=== PATIENT | male | born 1950 | race Caucasian/White ===

== ENCOUNTER 2024-07-06 12:20 | Inpatient (IN) | payer OTHER, SELFPAY ==
[2024-07-05] VITALS (25 sets, daily range): BP systolic 82–134; BP diastolic 41–83; PULSE 65–87; BMI 28.3
--- NOTE | 2024-07-05 05:23 | ED.GENMED ---
History of Present Illness
<John Santos, DO - Last Filed: 07/05/24 05:47>
General
Chief Complaint: Fainting/Passed Out
Source: patient
Exam Limitations: none
Time Seen by Provider: 07/05/24 05:21
Nursing documentation reviewed up to this point in time: agreed with
History of Present Illness
History of Present Illness:
74 yo male presents to the emergency department due to a near syncope episode. He was in the bathroom, felt lightheaded and fell, hitting his head on the bathtub rail. He felt lightheaded and was given IV fluids. He was hypotensive en route. He
also notes hitting his right knee. He is COVID positive, tested 2 days ago.
Past History
<John Santos, DO - Last Filed: 07/05/24 05:47>
Social History
Tobacco: Non-smoker
Alcohol: None
Drug: None
Review of Systems
<John Santos, DO - Last Filed: 07/05/24 05:47>
Review of Systems
Allergies reviewed?: Yes
All Other Systems: Not applicable
Constitutional: Reports no symptoms
EENT: Reports no symptoms
Respiratory: Reports no symptoms
Cardiac: Reports syncope
ABD/GI: Reports no symptoms
: Reports no symptoms
Musculoskeletal: Reports no symptoms
Skin: Reports no symptoms
Neurological: Reports dizzy
Endocrine: Reports no symptoms
Hematologic/Lymphatic: Reports no symptoms
Psychiatric: Reports no symptoms
Phy Exam
<John Santos DO - Last Filed: 07/05/24 05:47>
Physical Exam
Physical Exam:
Physical Exam
General: no apparent distress, not acutely ill
Neck: supple. no meningeal signs. normal posterior pharynx
Heart: s1/s2 regular rate and rhythm, no murmur. equal radial
pulses.
HEENT: Pupils equal round reactive to light, EOMI
Lungs: no acute respiratory distress. clear bilaterally
Abdomen: normal bowel sounds. not tender. no CVAT
Neuro: alert and oriented. no focal neurological deficits cranial nerves II through XII intact
Skin: no rash superficial laceration mid parietal, 1 cm laceration right knee
Psychiatric: well kept. interactive and cooperative
Extremities: no edema. no calf tenderness. negative homans. good distal pulses
Course
<John Santos, DO - Last Filed: 07/05/24 05:47>
Orders/Labs/Results
Orders:
Orders
07/05/24 05:22
Electrocardiogram (*1) Stat
Reason for Study: Syncope
CT Head W/o Iv Contrast Urgent
Comment:
Reason For Exam: fall, hit head
EKG- Treatment ONCE
IV Insert/Care/Rem.- Treatment PRN
07/05/24 05:30
Complete Blood Count/With Diff Urgent
Comprehensive Metabolic Panel Urgent
07/05/24 06:01
Orthostatic VS- Treatment ONCE
07/05/24 06:15
0.9% Sodium Chloride 1000 ml [Nss] 1,000 ml IV BOLUS
07/05/24 06:36
Potassium Chloride [KCl] 40 meq PO NOW STA
07/05/24 08:21
Diphenhydramine [Benadryl] 25 mg .ROUTE .STK-MED ONE
07/05/24 08:22
Diphenhydramine [Benadryl] 25 mg PO NOW STA
07/05/24 09:19
0.9% Sodium Chloride 1000 ml [Nss] 1,000 ml IV BOLUS
07/05/24 11:15
0.9% Sodium Chloride 1000 ml [Nss] 1,000 ml IV 150 mls/hr
Abnormal Lab Results
07/05/24
05:30
WBC 3.0 L 10^3/uL
(4.8-10.8)
MCV 73.2 L fL
(80.0-94.0)
MCH 25.6 L pg
(27.0-31.0)
Plt Count 127 L 10^3/uL
(130-400)
Monocytes % 13.5 H %
(1.7-9.3)
Sodium 134 L mmol/L
(135-145)
Potassium 3.4 L mmol/L
(3.5-5.1)
Chloride 96 L mmol/L
(98-107)
BUN 22 H mg/dl
(9-20)
Glucose 136 H mg/dl
(70-99)
Total Protein 6.0 L g/dl
(6.3-8.2)
07/05/24 05:30
07/05/24 05:30
Vital Signs
Initial and Last Documented VS:
Initial Vital Signs
Temp Pulse Resp BP Pulse Ox
36.9 C 63 20 115/74 99
07/05/24 05:18 07/05/24 05:18 07/05/24 05:18 07/05/24 05:18 07/05/24 05:18
Last Documented Vital Signs
Temp Pulse Resp BP Pulse Ox
36.9 C 70 15 132/83 99
07/05/24 05:18 07/05/24 10:30 07/05/24 10:30 07/05/24 10:00 07/05/24 07:09
<Moisés Richards MD - Last Filed: 07/05/24 11:04>
Orders/Labs/Results
Orders:
Orders
07/05/24 05:22
Electrocardiogram (*1) Stat
Reason for Study: Syncope
CT Head W/o Iv Contrast Urgent
Comment:
Reason For Exam: fall, hit head
EKG- Treatment ONCE
IV Insert/Care/Rem.- Treatment PRN
07/05/24 05:30
Complete Blood Count/With Diff Urgent
Comprehensive Metabolic Panel Urgent
07/05/24 06:01
Orthostatic VS- Treatment ONCE
07/05/24 06:15
0.9% Sodium Chloride 1000 ml [Nss] 1,000 ml IV BOLUS
07/05/24 06:36
Potassium Chloride [KCl] 40 meq PO NOW STA
07/05/24 08:21
Diphenhydramine [Benadryl] 25 mg .ROUTE .STK-MED ONE
07/05/24 08:22
Diphenhydramine [Benadryl] 25 mg PO NOW STA
07/05/24 09:19
0.9% Sodium Chloride 1000 ml [Nss] 1,000 ml IV BOLUS
07/05/24 11:15
0.9% Sodium Chloride 1000 ml [Nss] 1,000 ml IV 150 mls/hr
Abnormal Lab Results
07/05/24
05:30
WBC 3.0 L 10^3/uL
(4.8-10.8)
MCV 73.2 L fL
(80.0-94.0)
MCH 25.6 L pg
(27.0-31.0)
Plt Count 127 L 10^3/uL
(130-400)
Monocytes % 13.5 H %
(1.7-9.3)
Sodium 134 L mmol/L
(135-145)
Potassium 3.4 L mmol/L
(3.5-5.1)
Chloride 96 L mmol/L
(98-107)
BUN 22 H mg/dl
(9-20)
Glucose 136 H mg/dl
(70-99)
Total Protein 6.0 L g/dl
(6.3-8.2)
07/05/24 05:30
07/05/24 05:30
Vital Signs
Initial and Last Documented VS:
Initial Vital Signs
Temp Pulse Resp BP Pulse Ox
36.9 C 63 20 115/74 99
07/05/24 05:18 07/05/24 05:18 07/05/24 05:18 07/05/24 05:18 07/05/24 05:18
Last Documented Vital Signs
Temp Pulse Resp BP Pulse Ox
36.9 C 70 15 132/83 99
07/05/24 05:18 07/05/24 10:30 07/05/24 10:30 07/05/24 10:00 07/05/24 07:09
Procedures
<John Santos, DO - Last Filed: 07/05/24 05:47>
Laceration Closure
Right Lower Leg:
Status of Wound: clean
Size of Wound in cm: 1
Description of Wound Edges: sharp
Preparation: cleaned with saline
Anesthesia: 1% Lidocaine with epi
Revision/Debridement: routine- no revision
Wound exploration: explored to base- no FB
Type of Closure: single layer closure
Skin Closure Material: 4-0 nylon
Number of sutures: 1
<John Santos, DO - Last Filed: 07/05/24 05:47>
MDM/Problems Addressed
Differential Diagnosis Includes:
Dysrhythmia, hypovolemia, electrolyte disturbance, intracranial hemorrhage
MDM/Problems Addressed:
74-year-old male with COVID, near syncope episode, scalp laceration superficial, right lower leg laceration.
<John Santos, DO - Last Filed: 07/05/24 05:47>
*Pulse Oximetry
Patient hypoxic: no
*EKG
Interpreted by ED Provider?: Yes
EKG Intrepretation Date: 07/05/24
EKG Intrepretation Time: 05:28
Interpretation: abnormal
Comparison EKG: no comparison EKG present
Heart Rate: 62
Rate: normal
Rhythm: sinus
Douglas: normal axis
Interval: normal interval
QRS Pattern: other (LAFB)
Ischemia: no ischemia
*[employer] Interpretation
Rate: normal
Interpretation: normal
Heart Rate: 66
Rhythm: sinus
*Critical Care Note
Total Time (30-74mins, 75-104mins- exclusive of procedures): Not Applicable
<Moisés Richards MD - Last Filed: 07/05/24 11:04>
Update Note
Update Note:
UPDATE (Moisés Richards MD)
I have seen and evaluated the patient after signout and reviewed all labs and imaging.
Focused HPI: 74-year-old male COVID-positive since Thursday (primary symptom mild cough, sore throat, runny nose) who presented to the emergency room after syncope/near syncopal event with fall and head trauma. Patient says that he was in the
bathroom last night and when he bent over he felt lightheaded and nearly passed out that she does not believe he lost consciousness. He fell to the ground and hit his head. Sustained abrasion to the crown of the head. He also hit his knee on the
ground and sustained a minor laceration. Tetanus up-to-date. EMS called to bring him to the hospital. Here in the emergency room he says he feels well denies any complaints aside from feeling fatigued and mild sore throat/runny nose which had
been his primary COVID symptoms. He denies any headache, neck pain. Denies any back pain. Denies any chest or abdominal pain. He did not have any palpitations. Denies shortness of breath. Denies any other complaints. Minor laceration noted,
tetanus up-to-date.
Physical exam: Awake alert oriented x 3 with GCS 15. Vital signs noted all within normal limits�apparently had some hypotension for EMS which has since resolved. He has no cardiac rubs gallops or murmurs. Lungs clear to auscultation bilaterally.
Abdomen nontender. Minor abrasion to the crown of the head. Laceration right lower leg status post repair with sutures in place.
Medical Decision Makin-year-old male presents after near syncopal/syncopal event while bending over in the bathroom last night; event occurred in the setting of recent positive COVID test. Had associated fall with minor abrasion to the head as
well as laceration on the lower leg�laceration has been repaired. Tetanus reportedly up-to-date. He had initial lab work sent off including a CBC which showed mild leukopenia and thrombocytopenia likely viral related. CMP showed marginal
hypokalemia which were repleted p.o. Mildly elevated BUN�fluids in progress. He had a CT of the head which appears normal but we are awaiting radiology review. His EKG shows sinus rhythm with no high-grade AV block, Brugada, long QT, delta wave.
He is currently receiving fluids, pending CT head. He says that he feels well. Suspect likely mildly hypovolemic in the setting of viral illness which precipitated dizziness with positional change. Likely discharge pending fluids and CT read if
negative.
CT head report reviewed: No acute pathology noted. Patient remains awake alert with stable vital signs. Fluids finishing up.
Patient still markedly orthostatic (BP drops 50 points) with positional change. Provide additional fluids and reassess.
After 2.5 L of IV fluid patient still markedly orthostatic. Additional fluids ordered will admit for observation and IV fluids. Discussed with hospitalist.
ED Attending Note
<John Santos, DO - Last Filed: 07/05/24 05:47>
-
Portions of this chart may have been created with voice recognition software.� Occasional wrong word or��sound alike� substitutions may have occurred due to the inherent limitations of voice recognition software.
Discharge Plan
Departure
Patient Disposition: Admit
Date of Disposition: 07/05/24
Time of Disposition: 11:03
Admit to doctor: Topher
Presentation/result/management discussed w/ accepting MD/DO: Hospitalist
Patient with high blood pressure during this ER visit?: Yes
Condition: Good
Covid-19: Confirmed COVID-19
Discharge Problem:
Syncope, Laceration of scalp, Laceration of right lower leg, Orthostatic hypotension
Activity Restrictions/Additional Instructions:
Return for any concerns. Suture removal in 7-10 days by primary care.
Interventions
Interventions:
*Risk Screen - Suicide Last Done: 07/05/24 05:18
*General Assessment Last Done: 07/05/24 05:18
*Neglect/Abuse Screening Last Done: 07/05/24 05:18
ED- Fall Risk Assessment Last Done: 07/05/24 05:39
*ED COVID-19 Vaccine History Last Done: 07/05/24 05:32
ED- Cardiac Assessment Last Done: 07/05/24 05:39
ED- Neurological Assessment Last Done: 07/05/24 05:39
Discharge Date and Time
Print Language: MALIAN
[2024-07-05 05:50] LABS: % Basophils 0.7 % (0-2); % Eosinophils 0.7 % (0-6); % Immature Granulocytes 0.3 % (0-0.5); % Lymphocytes 39.2 % (20.5-51.1); % Monocytes 13.5 % (1.7-9.3); % Neutrophils 45.6 % (42.2-75.2); Absolute Lymphocytes 1.2 10^3/uL (1.2-3.4); Absolute Monocytes 0.4 10^3/uL (0.1-0.6); Absolute Neutrophils 1.4 10^3/uL (1.4-6.5); Hematocrit 42.8 % (39.0-52.0); Mean Corpuscular Hgb 25.6 pg (27.0-31.0); Mean Corpuscular Volume 73.2 fL (80.0-94.0); Mean Platelet Volume 9.8 fL (7.4-10.4); Nucleated Red Blood Cells % 0 % (-); Platelet Count 127 10^3/uL (130-400); Red Blood Cell Count 5.85 10^6/uL (4.70-6.10); Red Cell Dist. Width 14.4 % (11.5-14.5)
[2024-07-05 06:12] LABS: ALT (SGPT) 20 U/L (0-50); AST (SGOT) 30 U/L (17-59); Albumin 3.5 g/dl (3.5-5.0); Alkaline Phosphatase 85 U/L (38-126); Blood Urea Nitrogen 22 mg/dl (9-20); Calcium 8.5 mg/dl (8.4-10.2); Carbon Dioxide 25 mmol/L (22-30); Chloride 96 mmol/L (98-107); Estimated Creatinine Clearance 68 ml/min; Glucose 136 mg/dl (70-99); Potassium 3.4 mmol/L (3.5-5.1); Sodium 134 mmol/L (135-145); Total Bilirubin 1.1 mg/dl (0.2-1.3); eGFR > 60.00
[2024-07-05] MEDS: NSS 1000 IV ×4 (06:16→17:31)
[2024-07-05] MEDS: KCL 40 MEQ PO (06:41)
[2024-07-05] MEDS: BENADRYL 25 MG PO (08:22)
--- NOTE | 2024-07-05 11:55 | HPS.HSE ---
Family Physician
-
Family Physician: Fabian Wood
Chief Complaint
-
weak and generalized malaise
History of Present Illness
Patient 74 years old male with history of hypertension, hyperlipidemia, glaucoma, presented to the hospital with generalized malaise and near syncope event. Patient has been sick since Thursday with generalized malaise, cough, myalgias and he
tested COVID-19 negative on Thursday but then he also started having some fevers and continues to get worse and he tested positive for COVID-19 at home on Thursday. Patient has been very weak and when he was walking to the bathroom he felt
lightheaded and he fell and hit his head on the bathtub rail. Patient had discussed with provider via telemedicine that he was going to be started on Paxlovid and he was in the process of thinking about it. Today he was noted to be hypotensive en
route. He was given IV fluids in the ED. He had a CT scan of the head unremarkable. His BUN noticed to be elevated as well as hypokalemia and hyponatremia and he was referred to hospitalist for further evaluation.
Medical History
Past Medical History
Past Medical History: Reports Other (Hypertension, hyperlipidemia, GERD, glaucoma.)
Past Surgical History: Reports None
Social History
Tobacco: Non-smoker
Alcohol: None
Drug: None
Family History
Family History: Not pertinent
Allergies / Home Medications
Allergies reflects when Allergies were last updated in [facility].
Home Medications with original date entered in [facility]
Allergy/Medication List:
Allergies
Allergy/AdvReac Type Severity Reaction Status Date / Time
gluten Allergy Mild Rash Verified 07/05/24 05:28
Home Medications
cholecalciferol (vitamin D3) 25 mcg (1,000 unit) tablet 25 mcg PO QPM Supplement 07/05/24
famotidine 20 mg tablet 20 mg PO BID Gastrointestinal Issue 07/05/24
latanoprost 0.005 % eye drops 1 drp BOTH EYES HS Eye Condition 07/05/24
omega 6-rgf-[id number]-fish oil 1,200 mg (144 mg-216 mg) capsule (Fish Oil) 3 cap PO DAILY Supplement 07/05/24
simvastatin 20 mg tablet 20 mg PO QPM High Cholesterol 07/05/24
therapeutic multivitamin 1 tab PO DAILY Supplement 07/05/24
triamterene 37.5 mg-hydrochlorothiazide 25 mg tablet 1 tab PO DAILY Blood Pressure 07/05/24
Review of Systems
-
A 12 point ROS was completed and negative except as noted: Yes
Physical Exam
Vital Signs
Vital Signs
Temp Pulse Resp BP Pulse Ox
98.5 F 70 15 132/83 99
07/05/24 05:18 07/05/24 10:30 07/05/24 10:30 07/05/24 10:00 07/05/24 07:09
Physical exam:
General: Acutely ill
HEENT: Normocephalic, Atraumatic and Dry Mucous Membranes
Respiratory: Clear to Auscultation; Negative Wheezes, Rales or Rhonchi
Cardiac: Regular Rhythm and S1/S2
GI: Soft, Nontender and Nondistended
Musculoskeletal: No Clubbing, No Cyanosis and No Edema
Neuro: Awake, Alert and Oriented
Psych: Calm
Physical Exam
General: Other
Laboratory Results
-
07/05/24 05:30
07/05/24 05:30
Laboratory Results
Total Bilirubin 1.1 mg/dl (0.2-1.3) 07/05/24 05:30
AST 30 U/L (17-59) 07/05/24 05:30
ALT 20 U/L (0-50) 07/05/24 05:30
Alkaline Phosphatase 85 U/L (38-126) 07/05/24 05:30
Data Reviewed
-
CT Scan: Image Personally Visualized and interpreted
Lab Data: Labs Reviewed by me
Impression/Plan
-
IMPRESSION:
Patient is 74 years old male with history hypertension, hyperlipidemia presented to the hospital with fall, generalized weakness, cough, generalized malaise in the setting of acute COVID-19.
Impression:
COVID-19 acute infection
Fall with near syncope event likely hypotension/orthostatic
Hyponatremia
Hypokalemia
Leukopenia
Conditions prior to presentation:
Hypertension
Hyperlipidemia
GERD
Glaucoma
PLAN:
Continue aggressive IV fluid
Continue checking orthostatic
Cardiac monitoring
Discussed with patient in regards to start Paxlovid and went over the risk and benefits and interaction with medications and patient agreeable to start. Retest in-house.
Will start Paxlovid today.
Hold antihypertensives and statins for 5 days.
Monitor blood pressure and at the moment he does not need antihypertensives.
Lovenox for DVT prophylaxis
CODE STATUS full code
Time spent 75 minutes
[2024-07-05 13:53] LABS: COVID-19 Antigen Positive (Negative)
--- NOTE | 2024-07-05 15:45 | PTCARENOTE ---
pt arrived to unit at [id number] stretcher from ED, at the bedside. pt ambulated from hallway to bed with standby assist. pt connected to tele #[id number] running NSR. VSS. assessment completed by this nurse.
[2024-07-05] MEDS: VITAMIN D3 (cholecalciferol) 25 MCG PO (17:30)
[2024-07-05] MEDS: LOVENOX 40 MG SC (17:30)
[2024-07-05] MEDS: PAXLOVID 2X150 MG-100 MG DOSE PACK 1 DOSE PO (19:30)
[2024-07-05] MEDS: PEPCID 20 MG PO (19:31)
[2024-07-05] MEDS: XALATAN OPHTHALMIC SOLUTION 1 DROP BOTH EYES (21:47)
[2024-07-06] VITALS (7 sets, daily range): BP systolic 123–156; BP diastolic 59–94; PULSE 67–74
[2024-07-06] MEDS: NSS 1000 IV ×2 (04:54→12:43)
[2024-07-06 05:47] LABS: Hematocrit 36.7 % (39.0-52.0); Hemoglobin 13.1 g/dL (13.0-18.0); Mean Corp Hgb Conc. 35.7 g/dL (33.0-37.0); Mean Corpuscular Volume 72.8 fL (80.0-94.0); Red Blood Cell Count 5.04 10^6/uL (4.70-6.10); Red Cell Dist. Width 14.4 % (11.5-14.5)
[2024-07-06 05:56] LABS: Mean Platelet Volume 9.7 fL (7.4-10.4); Platelet Count 93 10^3/uL (130-400)
[2024-07-06 06:30] LABS: Blood Urea Nitrogen 13 mg/dl (9-20); Carbon Dioxide 25 mmol/L (22-30); Chloride 102 mmol/L (98-107); Estimated Creatinine Clearance 75 ml/min; Glucose 97 mg/dl (70-99); Magnesium 1.9 mg/dl (1.6-2.3); Potassium 3.8 mmol/L (3.5-5.1); Sodium 134 mmol/L (135-145); eGFR > 60.00
--- NOTE | 2024-07-06 08:56 | W.PN.HOSP.TC ---
Today's Communication/Plan
-
IV fluids. Paxlovid. Hematology consult.
Assessment / Plan
Assessment / Plan
Physical exam:
General: Acutely ill
HEENT: Normocephalic, Atraumatic and Dry Mucous Membranes
Respiratory: Clear to Auscultation; Negative Wheezes, Rales or Rhonchi
Cardiac: Regular Rhythm and S1/S2
GI: Soft, Nontender and Nondistended
Musculoskeletal: No Clubbing, No Cyanosis and No Edema
Neuro: Awake, Alert and Oriented
Psych: Calm
A/P:
COVID-19 acute infection:
Continue Paxlovid-this is day 2 out of 5.
Continue isolation precautions
Discussed with at bedside
Fall with near syncope event likely hypotension/orthostatic:
Continue IV fluids
Orthostatic improving
Thrombocytopenia:
Hold Lovenox
Monitor trend
Hematology consult-discussed with hematology via [place] text
Unclear if related to virus which is most likely or related to medications or other
Leukopenia:
As above
Hyponatremia:
Continue to monitor
Hypokalemia:
Improved
Hypertension:
Monitor off antihypertensives
Plan to hold medications for 5 days-this is day 2 out of 5.
Hyperlipidemia:
Monitor off statins
Plan to hold medications for 5 days-this is day 2 out of 5.
GERD:
Continue H2 addy
Glaucoma:
Continue eyedrops
DVT prophylaxis:
Hold Lovenox due to thrombocytopenia
SCDs for DVT prophylaxis
CODE STATUS:
Full code
Anticipated Discharge: 24 - 48 hours
Subjective/Interval History
-
Date of Service: July 06, 2024
Patient feels better overall. No epistaxis, bright blood per rectum, or melena.
Objective Data
-
Labs:
Laboratory Results
07/06/24
05:22
WBC 2.0 L*
Hgb 13.1
Hct 36.7 L
Plt Count 93 L D
Sodium 134 L
Potassium 3.8
Chloride 102
Carbon Dioxide 25
BUN 13
Creatinine 0.9
Glucose 97
Calcium 8.0 L
Vital Signs:
Vital Signs
Temp Pulse Resp BP Pulse Ox
98.1 F 69 16 138/94 98
07/06/24 07:00 07/06/24 07:00 07/06/24 07:00 07/06/24 07:00 07/06/24 07:00
I&O
07/05/24 07/06/24 07/07/24
06:59 06:59 06:59
Intake Total 960 / 960
Output Total 1600 / 1600
Balance -640 / -640
[2024-07-06] MEDS: PAXLOVID 2X150 MG-100 MG DOSE PACK 1 DOSE PO ×2 (09:10→21:08)
[2024-07-06] MEDS: PEPCID 20 MG PO ×2 (09:10→21:08)
--- NOTE | 2024-07-06 16:08 | CM ---
Patient positive for Covid-19
Initial Assessment completed via phone with who was at patient's bedside
Pharmacy verified: [facility] @ [address] [place] [address]
Family Physician verified: Keith Rosario MD; [address] [place] [address] [id number], [place], [phone];
reported that she and her live in 3 story home including basement; 3 steps to enter; 13 steps between floors; inside railings present; powder room on 1st floor; 2nd floor master bath has tub w/shower and grab bars
Per , her has Glaucoma and Celiac Disease
PLOF: reported is independent with ambulation, stairs and ADLs; Retired; Drives
DME: none
No SNF or Home Health utilization history
Family will transport home
Plan: Discharge to home when medically stable; CM will monitor for discharge needs
[2024-07-06] MEDS: VITAMIN D3 (cholecalciferol) 25 MCG PO (17:23)
[2024-07-06] MEDS: XALATAN OPHTHALMIC SOLUTION 1 DROP BOTH EYES (21:11)
[2024-07-07] MEDS: NSS 1000 IV (02:51)
[2024-07-07 06:29] LABS: Hematocrit 35.9 % (39.0-52.0); Hemoglobin 12.7 g/dL (13.0-18.0); Mean Corp Hgb Conc. 35.4 g/dL (33.0-37.0); Mean Corpuscular Hgb 26.7 pg (27.0-31.0); Mean Corpuscular Volume 75.6 fL (80.0-94.0); Mean Platelet Volume 9.9 fL (7.4-10.4); Platelet Count 97 10^3/uL (130-400); Red Blood Cell Count 4.75 10^6/uL (4.70-6.10); Red Cell Dist. Width 14.2 % (11.5-14.5); White Blood Cell Count 2.3 10^3/uL (4.8-10.8)
[2024-07-07 06:39] VITALS: BMI 29.4
[2024-07-07 06:44] LABS: Band Neutrophils 0 % (0-3); Eosinophils 5 % (0-6); Lymphocytes 38 % (20-51); Monocytes 14 % (2-9); Normal RBC Morphology Yes; Platelets Checked Yes; Segmented Neutrophils 42 % (42-75); Total Cells Counted 100
[2024-07-07 06:45] LABS: Absolute Neutrophils -Man Diff 0.9 10^3/uL (1.4-6.5); Blood Urea Nitrogen 14 mg/dl (9-20); Calcium 8.8 mg/dl (8.4-10.2); Carbon Dioxide 29 mmol/L (22-30); Chloride 102 mmol/L (98-107); Estimated Creatinine Clearance 85 ml/min; Glucose 92 mg/dl (70-99); Potassium 4.3 mmol/L (3.5-5.1); Sodium 137 mmol/L (135-145); eGFR > 60.00
[2024-07-07 07:00] VITALS: BP 144/81
[2024-07-07] MEDS: PAXLOVID 2X150 MG-100 MG DOSE PACK 1 DOSE PO (09:37)
[2024-07-07] MEDS: PEPCID 20 MG PO (09:37)
--- NOTE | 2024-07-07 09:37 | W.PN.HOSP.TC ---
Today's Communication/Plan
-
Discharge planning in progress.
Assessment / Plan
Assessment / Plan
Physical exam:
General: No acute distress.
HEENT: Normocephalic, Atraumatic and Dry Mucous Membranes
Respiratory: Clear to Auscultation; Negative Wheezes, Rales or Rhonchi
Cardiac: Regular Rhythm and S1/S2
GI: Soft, Nontender and Nondistended
Musculoskeletal: No Clubbing, No Cyanosis and No Edema
Neuro: Awake, Alert and Oriented
Psych: Calm
A/P:
COVID-19 acute infection:
Continue Paxlovid-this is day 2 out of 5-last pill on Thursday.
Continue isolation precautions
Discussed with at bedside
From my standpoint medically stable for discharge today but if he does feel symptomatic or does not feel comfortable going home then could monitor for one more night.
Fall with near syncope event likely hypotension/orthostatic:
Stop IV fluids
Orthostatic improving
Family request PT to reeval.
Thrombocytopenia:
Hold Lovenox
Monitor trend
Hematology consult appreciated-discussed with hematology today and recommended to monitor CBC as outpatient and they are okay with discharge planning today.
Likely related to viral infection
Leukopenia:
As above
Hyponatremia:
Continue to monitor
Hypokalemia:
Improved
Hypertension:
Monitor off antihypertensives
Plan to hold medications for 5 days-this is day 2 out of 5.
Hyperlipidemia:
Monitor off statins
Plan to hold medications for 5 days-this is day 2 out of 5.
GERD:
Continue H2 addy
Glaucoma:
Continue eyedrops
DVT prophylaxis:
Hold Lovenox due to thrombocytopenia
SCDs for DVT prophylaxis
CODE STATUS:
Full code
Anticipated Discharge: Today
Subjective/Interval History
-
Date of Service: July 07, 2024
Patient feels some shortness of breath. He does not feel dizzy. Denies chest pain. Afebrile.
Objective Data
-
Labs:
Laboratory Results
07/07/24
05:48
WBC 2.3 L*
Hgb 12.7 L
Hct 35.9 L
Plt Count 97 L
Sodium 137
Potassium 4.3
Chloride 102
Carbon Dioxide 29
BUN 14
Creatinine 0.8
Glucose 92
Calcium 8.8
Vital Signs:
Vital Signs
Temp Pulse Resp BP Pulse Ox
98.2 F 69 16 144/81 97
07/07/24 07:00 07/07/24 07:00 07/07/24 07:00 07/07/24 07:00 07/07/24 07:00
I&O
07/06/24 07/07/24 07/08/24
06:59 06:59 06:59
Intake Total 960 / 960 1560 / 1560
Output Total 1600 / 1600 2550 / 2550
Balance -640 / -640 -990 / -990
[2024-07-07 13:20] LABS: Iron 30 ug/dl (49-181)
[2024-07-07 14:00] VITALS: BP 137/74
[2024-07-07 14:05] VITALS: BP 152/78; BP 153/81; BP 159/83; PULSE 62; PULSE 63; PULSE 64
--- NOTE | 2024-07-07 14:13 | CM ---
PT re-evaluated orthostatics and cleared for discharge to Home
Plan: Discharge to Home today; no needs; will transport
[2024-07-07 16:22] LABS: Ferritin 41.2 ng/ml (17.9-464.0)
[2024-07-07 16:53] LABS: Folate 15.3 ng/ml (2.76-20); Vitamin B12 298 pg/ml (239-931)
[2024-07-07 20:37] LABS: Hepatitis C Antibody Negative (Negative)
== END 2024-07-07 16:09 | disposition home or self-care (01) | DRG 178 ==
LOC: 3 WEST ACU 12:20
PROVIDERS: Internal Medicine Hematology & Oncology; ADMITTING PHYSICIAN Hospitalist; EMERGENCY PHYSICIAN Emergency Medicine; FAMILY PHYSICIAN Student in an Organized Health Care Education/Training Program
DX: U07.1 COVID-19 (principal); E87.1 Hypo-osmolality and hyponatremia; I95.1 Orthostatic hypotension; D69.6 Thrombocytopenia, unspecified; D72.819 Decreased white blood cell count, unspecified; E87.6 Hypokalemia; I10 Essential (primary) hypertension; E78.5 Hyperlipidemia, unspecified; K21.9 Gastro-esophageal reflux disease without esophagitis; H40.9 Unspecified glaucoma
CPT/HCPCS: 70450; 80048; 80053; 82607; 82728; 82746; 83540; 83735; 85025; 85027; 86803; 87811; 93005; 96360; 96361; 97112; 97162; 97530; 99285

== ENCOUNTER 2025-06-28 11:22 | Inpatient (IN) | payer OTHER, SELFPAY ==
[2025-06-28] VITALS (13 sets, daily range): BP systolic 106–152; BP diastolic 55–94; BMI 28.6
[2025-06-28 09:54] LABS: Hematocrit 43.1 % (39.0-52.0); Hemoglobin 15.2 g/dL (13.0-18.0); Mean Corp Hgb Conc. 35.3 g/dL (33.0-37.0); Mean Corpuscular Volume 81.5 fL (80.0-94.0); Nucleated Red Blood Cells % 0 % (-); Platelet Count 184 10^3/uL (130-400); Red Cell Dist. Width 12.5 % (11.5-14.5)
--- NOTE | 2025-06-28 09:54 | ED.GENMED ---
History of Present Illness
General
Chief Complaint: Chest Pain
Source: patient and ambulance crew
Time Seen by Provider: 06/28/25 09:53
History of Present Illness
History of Present Illness:
75-year-old male presents to the emergency room complaining of chest pain. Patient brought to the emergency by ambulance. He noted some mild discomfort in his anterior chest that started while he was exercising with his household personal assistant. The
discomfort persisted even after he stopped exercising and was resting. He had significant sweating which is not typical for him. Mild shortness of breath. He had an episode of nausea while paramedics were putting him in the ambulance. The chest
discomfort is about the same now as it was earlier which is mild maybe a 2 out of 10 but definitely something is not had before and he feels generally unwell like something is wrong. Medics noted the patient had some bradycardia and route.
Prehospital EKG suggestive of an inferior wall NV and prehospital STEMI alert called.
Past History
Social History
Tobacco: Non-smoker
Alcohol: None
Drug: None
Phy Exam
Physical Exam
Physical Exam:
General: Awake, Alert, Oriented X3. No acute distress.
Vitals: unremarkable
Head: Atraumatic
Eyes: Pupils equal, EOMI
Neck: Trachea midline
Lungs: Clear and equal b/l
Heart: Regular rate, no murmurs
Neuro: Nonfocal
Skin: Warm, dry, no rash
Extremities: pulses equal b/l, no edema
Scores
Heart Score for Chest Pain Patients
STEMI patient?: Yes
Course
Orders/Labs/Results
Orders:
Orders
06/28/25 09:43
Electrocardiogram (*1) Urgent
Reason for Study: Chest Pain
Cardiac Monitoring- Treatment ONCE
EKG- Treatment ONCE
IV Insert/Care/Rem.- Treatment PRN
O2 Therapy [RESP] Urgent
Titrate/Wean O2 to maintain O2 sat greater than (%): 90
Special Instructions: Maintain sats >/=90%
Pulse Ox/spot Check [RESP] Urgent
Quantity: 1
Special Instructions: ON ROOM AIR
06/28/25 09:48
Complete Blood Count/With Diff Urgent
Comprehensive Metabolic Panel Urgent
Prothrombin Time Urgent
Troponin I Urgent
06/28/25 09:55
Heparin 5,000 units .ROUTE .STK-MED ONE
06/28/25 09:57
Fentanyl Citrate/Pf [Sublimaze] 100 mcg .ROUTE .STK-MED ONE
Heparin 10,000 units .ROUTE .STK-MED ONE
Heparin 1000 Units/500 ml [Heparin] 1,000 units in 500 ml .ROUTE .STK-MED
Heparin Sodium,Porcine/Ns/Pf [Heparin 2000 Units/1000 ml] 2,000 unit in 1,000 ml .ROUTE .STK-MED
Lidocaine HCl/Pf [Xylocaine-Mpf 1% Vial] 100 mg .ROUTE .STK-MED ONE
Midazolam HCl [Versed] 2 mg .ROUTE .STK-MED ONE
Verapamil Injectable [Isoptin/Verapamil Injection] 5 mg .ROUTE .STK-MED ONE
06/28/25 09:58
Nitroglycerin [Tridil] 1,500 mcg .ROUTE .STK-MED ONE
06/28/25 Lunch
Cholesterol Lowering
At Your Request: Full Participation
Does patient need a safe tray?: No
Cholesterol Lowering: Sodium, 2 Gram
Gluten Free
06/28/25 10:18
Ticagrelor [Brilinta] 180 mg .ROUTE .STK-MED ONE
06/28/25 10:29
Adenosine [Adenocard] 6 mg .ROUTE .STK-MED ONE
06/28/25 10:31
EPTIFIBATIDE 75 mg/100 mL [Integrilin] 75,000 mcg in 100 ml .ROUTE .STK-MED
Eptifibatide [Integrilin] 20 ml .ROUTE .STK-MED
06/28/25 10:33
Admit Patient As Directed
Co-Sign Provider:
Level of Care: Inpatient admission
Assign to:: IVU
Physician / Group: genevieve stevenson
Diagnosis: STEMI
Reason for Hospitalization: Inferior STEMI
Expected length of stay greater than two midnights?: Yes
ELOS- Estimated Length of Stay in days: 3
I certify the patient meets the requirements for IP care: Yes
Electrocardiogram (*1) Urgent
Reason for Study: Other
Other Reason for Exam: s/p intervention
Comment: cbc
CARDIAC REHAB CONSULT Routine
Co-Sign Provider:
Cardiac Rehab & Exercise Evaluation Referral
Type of Cardiac Rehab Referral: Outpatient
Diagnosis: STEMI
Date of Diagnosis/Surgery: 06/28/25
Referring Provider: Jon Cardoso
[facility] Intensive Cardiac Rehab Exercise Prescription
The above named person is capable of participating in an intensive cardiac rehab exercise therapy program
under the guidance of the [facility] cardiac rehab staff, outpatient registered dieticians and
supervision of a physician.
ICR Program Objectives:
Provide supervised exercise, cooking classes, nutritional counseling and healthy mind-set education to
improve the function/symptom free work capacity to an optimal level as well as control risk factors to
prevent the progression of heart disease. During the supervised exercise therapy session some or all of
the following may be included in the cardiac rehab session: ECG telemetry, BP, heart rate, rate of
perceived exertion, symptoms/tolerance, cholesterol testing and education. Exercise modalities may
include: treadmill, upright or recumbent bike, spin bike, rowing machine, elliptical, recumbent
elliptical, arm-bike machine, recumbent stepper and free weights.
Intensity:
All CR staff will use ACSM guidelines: Most patients will exercise in the following range: Heart Rate
[place] range of 40% to 80% & Oxygen Uptake reserve range 40-80% (VO2R). Peak heart rate and VO2 are
derived from the cardiac rehab submaximal graded exercise test at RPE of 13/14 out of 20. Initial
intensity range: RPE 11 to 14/20 and may expand to 11 to 16/20.
Duration & Frequency:
If appropriate the patient will be progressed up to 40 minutes of exercise therapy. Patients will be
instructed to come three times a week in cardiac rehab and at a home/other gym to achieve optimal
physical activity/exercies i.e. 4000-10,000 steps per day.
Education:
The patient will receive one-on-one education during their orientation, initial exercise evaluation, ITP
reassessments and discharge session. Each exercise session will also include an education class (30-40
minutes).
Acetaminophen [Tylenol] 650 mg PO Q4HPRN PRN
Ondansetron Injectable [Zofran] 4 mg .ROUTE .STK-MED ONE
Activity As Directed
Activity Level: Out of Bed- Chair
Comment: bed/chair rest for 2 hours then out of bed ad corwin
Learning And Development Manager Procedure As Directed
Cardiac Cath Procedure: percutaneous coronary intervention
Intake/ Output As Directed
Frequency: Per unit guidelines
Notify MD As Directed
Notify physician if: immediately for chest pain or bleeding from access site(s)
Radial Artery Hemostasis Method As Directed
Instructions:: 3 mL out at 2 hour posts placement of band
3 mL out at 2 1/2 hours post placement of band
3 mL out at 3 hours post placement of band
Off at 3 1/2 hours post placement of band
If any oozing or hemotoma occurs:: re-inflate band and call provider
Site Checks As Directed
Check access site for bleeding/hematoma: Yes
Comment: on arrival, Q15min x4, Q30min x2, Q1 hr x2, Q2 hr x2, Q4 hr or per
protocol
Vascular Checks As Directed
Location: distal to access site - pulse check
Frequency: Other
Comment: on arrival, Q15min x4, Q30min x2, Q1 hr x2, Q2 hr x2, Q4 hr or per protocol
Vital Signs As Directed
Frequency: Other
Additional Instructions:: on arrival, Q15min x4, Q30min x2, Q1 hr x2, Q2 hr x2, then Q4 hr or per unit
protocol
PRN Pain Medication Management As Directed
May give lesser potent ordered pain med per pt: Yes
preference::
Protocol:: Medication orders for pain may be administered in a
manner that supports deferring to patient preference
when the pt is:
- Requesting an ordered lesser potent pain medication.
Least to most potent pain medications are defined
as: acetaminophen < NSAID < tramadol < opioids
(morphine, oxycodone, hydromorphone).
- Requesting a lesser dose of the same medication IF
ORDERED.
- Requesting a less intrusive route of administration
if both routes are prescribed by the provider (PO <
IV).
06/28/25 10:34
DX Deep Vein Thrombosis Video Routine
06/28/25 10:44
Morphine Sulfate 2 mg .ROUTE .STK-MED ONE
06/28/25 10:45
0.9% Sodium Chloride 1000 ml [Nss] 1,000 ml IV PER PROTOCOL
Infusion rate in mL/kg/hr:: 1.5
Infusion rate in mL/hr:: 145
Duration of infusion (hours):: 5
EPTIFIBATIDE 75 mg/100 mL [Integrilin] 75,000 mcg in 100 ml IV ORDERED RATE
06/28/25 10:50
Heparin 54409 Units/250 ml 25,000 units in 250 ml .ROUTE .STK-MED
Nitroglycerin [place] [Nitrolingual [place]] 1 bottle .ROUTE .STK-MED ONE
06/28/25 11:07
Heparin 69796 Units/250 ml 25,000 units in 250 ml IV ORDERED RATE
06/28/25 16:00
Troponin I Q8H
06/28/25 18:00
Atorvastatin [Lipitor] 40 mg PO QPM
06/28/25 20:00
Ticagrelor [Brilinta] 90 mg PO BID
06/29/25 00:00
Troponin I Q8H
06/29/25 06:00
Echo 2D MMode Color/Doppler IN AM
Reason for Study: STEMI
Comment: cbc
Electrocardiogram (*1) IN AM
Reason for Study: Other
Other Reason for Exam: s/p intervention
Comment: cbc
Basic Metabolic Panel IN AM
Cardiovascular Evaluation IN AM
Complete Blood Count/No Diff IN AM
Glycohemoglobin (HgbA1c) Routine
06/29/25 08:00
Troponin I Q8H
Aspirin Chewable [Low Strength Aspirin] 81 mg PO DAILY
Pantoprazole [Protonix] 40 mg PO DAILY
06/29/25 18:00
Enoxaparin Sodium [Lovenox] 40 mg SC QPM
06/30/25 06:00
Basic Metabolic Panel IN AM
Complete Blood Count/No Diff IN AM
07/01/25 06:00
Basic Metabolic Panel IN AM
Complete Blood Count/No Diff IN AM
Abnormal Lab Results
06/28/25 06/28/25
09:48 10:19
PT 15.2 H Sec
(11.4-14.6)
Glucose 151 H mg/dl
(70-99)
Total Bilirubin 1.4 H mg/dl
(0.2-1.3)
POC ACT Low Range 376 H Seconds
(116-155)
06/28/25 09:48
06/28/25 09:48
Vital Signs
Initial and Last Documented VS:
Initial Vital Signs
Pulse Resp BP Pulse Ox
61 17 138/94 99
06/28/25 09:44 06/28/25 09:44 06/28/25 09:44 06/28/25 09:44
Last Documented Vital Signs
Temp Pulse Resp BP Pulse Ox
97.2 F 60 20 117/84 95
06/28/25 11:25 06/28/25 12:45 06/28/25 11:25 06/28/25 12:30 06/28/25 12:45
MDM/Problems Addressed
Differential Diagnosis Includes:
STEMI, ACS, chest wall pain
MDM/Problems Addressed:
Patient presents with prehospital EKG suggestive of a inferior wall NV. EKG here shows ST elevation in leads II, III and aVF with T wave depression in aVL. Patient was taken to the Learning And Development Manager. Dr. Corey here in the emergency room to evaluate the
patient shortly after his arrival. Dr. Corey agreed with heparin. He wanted to hold off on Brilinta. Patient had taken Brilinta prior to arrival.
Chronic conditions affecting care: HTN and Other (High cholesterol)
*Pulse Oximetry
SaO2: 99
Patient hypoxic: no
*EKG
Interpreted by ED Provider?: Yes
Heart Rate: 61
Rate: normal
Rhythm: sinus
[place]: normal axis
Ischemia: ST elevation (Leads II, 3, aVF with reciprocal changes in aVL)
*Scenic Artist Interpretation
Rate: normal
Interpretation: normal
Rhythm: sinus
*Critical Care Note
Total Time (30-74mins, 75-104mins- exclusive of procedures): 15 min
comment:
Critical care statement: A total of 15 minutes of critical care time was provided for this patient. This includes management of unstable vital signs, evaluation of the patient at bedside, reviewing the patient's pertinent medical records, discussion
with consultants, review of old EKGs and review of pertinent medical records. This time with separate from time utilized to perform the aforementioned documented procedures
ED Attending Note
-
Portions of this chart may have been created with voice recognition software.� Occasional wrong word or��sound alike� substitutions may have occurred due to the inherent limitations of voice recognition software.
Discharge Plan
Departure
Patient Disposition: Admit
Date of Disposition: 06/28/25
Time of Disposition: 09:59
Admit to: gold leaf laborer
Presentation/result/management discussed w/ accepting MD/DO: Dr. Corey
Condition: Serious
Discharge Problem:
Acute NV, inferior wall
Interventions
Interventions:
*General Assessment Last Done: 06/28/25 09:44
*Neglect/Abuse Screening Last Done: 06/28/25 09:44
*ED- Fall Risk Assessment Last Done: 06/28/25 09:44
*Nursing Disposition Last Done: 06/28/25 10:07
Discharge Date and Time
Discharge Date/Time: 06/28/25 10:07
[2025-06-28 10:05] LABS: INR 1.14; PT 15.2 Sec (11.4-14.6)
--- NOTE | 2025-06-28 10:07 | HPS.HSE ---
Family Physician
-
Family Physician: Jt Mcgee MD
Chief Complaint
-
Chest pain
History of Present Illness
75 yo WM h/o HTN with some orthostatic hypotension, Hyperlipidemia, GERD, Glaucoma, non smoker, family hx premature CAD who was at the gym with adjunct trainer had some mild dizziness (which he has had in past), then when he was at home on the
computer he developed SSCP 3-01/19 no radiation but mild dyspnea and diaphoresis and he called 911. He took 324mg ASA at home, EKG by EMS with subtle inferior ABBEY an STEMI alert was activated. He was given heparin 5000u in ER and brought to blender laborer
urgently. On arrival to blender laborer chest pain -11/21.
Medical History
Past Medical History
Past Medical History: Reports GERD, HTN (orthostatic hypotension at times), Hypercholesterolemia and Other
Additional Past Medical History:
Glaucoma, COVID 19 06/2024
Past Surgical History: Reports Other (colonoscopy)
Social History
Tobacco: Non-smoker
Alcohol: Occasional
Drug: None
Personal:
Living: With Family
Family History
Family History: Early CAD (father GA @50, passed from CHF in 70's, Mother alzheimers and CVA)
Allergies / Home Medications
Allergies reflects when Allergies were last updated in [facility].
Home Medications with original date entered in [facility]
Allergy/Medication List:
Allergies
Allergy/AdvReac Type Severity Reaction Status Date / Time
gluten Allergy Mild Rash Verified 06/28/25 09:53
�Medication �Instructions �Recorded �Confirmed �Type
cholecalciferol (vitamin D3) 25 25 mcg PO QPM Supplement 07/05/24 07/05/24 History
mcg (1,000 unit) tablet
famotidine 20 mg tablet 20 mg PO BID Gastrointestinal Issue 07/05/24 07/05/24 History
latanoprost 0.005 % eye drops 1 drp BOTH EYES HS Eye Condition 07/05/24 06/28/25 History
omega 8-amt-emh-fish oil 1,200 mg 3 cap PO DAILY Supplement 07/05/24 07/05/24 History
(144 mg-216 mg) capsule (Fish Oil)
therapeutic multivitamin 1 tab PO DAILY Supplement 07/05/24 07/05/24 History
amlodipine 5 mg tablet 5 mg PO DAILY 06/28/25 06/28/25 History
pantoprazole 40 mg tablet,delayed 40 mg PO DAILY 06/28/25 06/28/25 History
release
simvastatin 20 mg tablet 20 mg PO DAILY 06/28/25 06/28/25 History
telmisartan 80 mg tablet 80 mg PO DAILY 06/28/25 06/28/25 History
Review of Systems
-
Cardiac: Reports Chest Pain (1-11/21 on blender laborer table )
Physical Exam
Vital Signs
Vital Signs
Pulse Resp BP Pulse Ox
61 17 138/94 99
06/28/25 09:44 06/28/25 09:44 06/28/25 09:44 06/28/25 09:59
Physical Exam
General: Pain (deferred full exam as being prepped and draped on blender laborer table for emergent procedure)
Laboratory Results
-
06/28/25 09:48
Data Reviewed
-
Medical Tests (Nuc Med, Echo, EKG etc): Report Reviewed by me
Impression/Plan
-
PCP: Jt Mcgee MD
Applications Support Specialist; None, New to Jon Cardoso DO
IMPRESSION/PLAN:
#Inferior STEMI - stat [facility] with proximal RCA stenosis, post PCI x 1 LUCILLE c/b slow reflow/no reflow
Integrilin drip for 18 hrs and heparin drip 6 hours
serial troponin to peak
Echo in am
DAPT ASA/Brilinta (CM to eval cost)
continue telmisartan, add low dose BB if HR allows
Check CVE, start high intensity statin, stop simvastatin
elevated glucose check A1c
Cardiac rehab c/s
f/u cbc 2-4 weeks
continue to monitor on tele 48 hours
#HTN - continue telmisartan, amlodipine, add low dose BB if HR allows
#HLD - check CVE, will switch simvastatin to Atorvastatin 40mg
#GERD - continue PPI, Pepcid as needed
#Glaucoma - continue eye drops
[2025-06-28 10:19] LABS: ALT (SGPT) 22 U/L (0-50); AST (SGOT) 24 U/L (17-59); Albumin 4.0 g/dl (3.5-5.0); Alkaline Phosphatase 78 U/L (38-126); Blood Urea Nitrogen 17 mg/dl (9-20); Calcium 9.5 mg/dl (8.4-10.2); Carbon Dioxide 27 mmol/L (22-30); Chloride 104 mmol/L (98-107); Estimated Creatinine Clearance 76 ml/min; Glucose 151 mg/dl (70-99); Potassium 4.5 mmol/L (3.5-5.1); Sodium 135 mmol/L (135-145); Total Protein 6.3 g/dl (6.3-8.2); eGFR > 60.00
[2025-06-28 10:22] LABS: Troponin I < 0.012 ng/ml
[2025-06-28 10:38] LABS: ACT-LR - POC 376 Seconds (116-155)
--- NOTE | 2025-06-28 11:01 | ITS.CL.ANGIO ---
Parimutuel Clerk - Angioplasty
Angioplasty
Procedure Report:
CARDIAC CATHETERIZATION REPORT
Date of Procedure: 06/28/2025
Referring: Robin Pulido D.O.
INDICATION: Inferior ST elevation myocardial infarction.
PROCEDURE:
1. Left heart catheterization
2. Coronary angiography.
3. Successful PCI of the proximal RCA.
4. Aggressive vasodilation due to slow reflow/no reflow in the distal RCA.
A total of 42 minutes of procedural/moderate sedation was utilized. An independent medical laboratory assistant was present to assist with and help manage the patient's level of consciousness and physiologic status.
ACCESS:
1. 6 Frisian right radial artery using a modified Seldinger technique.
CATHETERS:
1. 5 Frisian JR4.
2. 5 Frisian JL 3.5.
3. 6 Frisian JR4 guiding catheter.
HEMODYNAMIC DATA
Weight (kg): 90.7
AO (s/d/x, mmHg): 129/75/98
LV (s/x mmHg): 131/10
LEFT VENTRICULOGRAPHY: Not performed.
CORONARY ANGIOGRAPHY
Dominance: Right.
Left Main: Normal size, trifurcating vessel. There is no coronary artery disease.
LAD: Normal size vessel giving rise to 1 single diagonal. There is a 20-30% lesion in the proximal LAD before the origin of the diagonal.
Ramus: Normal size vessel supplying the majority of the anterolateral wall. There is no coronary artery disease.
Circumflex: Normal size, nondominant vessel giving rise to 2 obtuse marginals. There is no coronary artery disease.
RCA: Enormous, dominant vessel with a large posterolateral arcade. There is a hazy, thrombotic, 95% lesion in the proximal RCA with DUTCH II flow.
INTERVENTION(S)
1. Successful PCI of the 95% proximal RCA lesion (Xience Skypoint 4.0 x 28 LUCILLE, postdilated with a 5.0 NC balloon) with reduction in stenosis to 0%, complicated by slow reflow/no reflow, DUTCH I flow.
2. Successful delivery of vasodilators to the distal RCA, restoring DUTCH-3 flow.
Narrative:
The decision was made to proceed with percutaneous coronary intervention. The diagnostic catheter was removed over a wire and a 6Fr JR4 guiding catheter was advanced to the aortic root and seated in the RCA. Additional heparin was given and a Power
Turn Flex wire was advanced into the distal RCA/RPL. The 95% thrombotic proximal RCA lesion was predilated with a 2.0 x 12 semi-compliant balloon to 12 danyell. The semi-compliant balloon was removed and a Xience Skypoint 4.0 x 28 drug-eluting stent was
advanced. The stent was deployed at 12 atmospheres. The stent balloon was removed.
Telemetry showed that there was some increase in ST elevation. Angiography showed slow reflow through the vessel. Nitroglycerin 150 mcg was given intracoronary with modest improvement.
A 5.0 x 15 noncompliant balloon was advanced into the stent and the stent was postdilated to 12 atmospheres throughout. Angiography was repeated, demonstrating slow reflow throughout the mid and distal vessel with DUTCH I-II flow. A twin pass
microcatheter was advanced over the power turn flex wire and into the distal RCA. Nitroglycerin 150 mcg was given through the twin pass catheter with modest improvement. Eptifibatide was started as a double bolus and drip. Adenosine 240 mcg was
given through the twin pass catheter. Pain was controlled with a combination of nitroglycerin, fentanyl and morphine. A second dose of adenosine was given through the twin pass catheter with notable improvement in the ST segment elevation. Repeat
angiography was performed demonstrating zoroastrianism of DUTCH II-III flow.
The second bolus of eptifibatide was given through the twin pass catheter which was then flushed with a third dose of adenosine.
Angiography was performed in orthogonal views, confirming good stent expansion and an excellent angiographic result with zoroastrianism of DUTCH-3 flow there was some residual slow flow in the distal vessel, but vastly improved from the initial slow
reflow. The patient reported an improvement in chest pain from 5/10 to 2/10. The coronary wire was withdrawn and the guide was disengaged from the artery. The catheter was removed over a standard J-wire.
Closure Device: Vascular band.
Radiation (mGy): 1202
DAP (cm2.Gy): 59.9
Fluoroscopy time (minutes): 7.1
CONCLUSIONS
1. Right dominant circulation with a 20-30% lesion in the proximal LAD and a hazy, thrombotic 95% culprit lesion in the proximal RCA with DUTCH II flow, status post successful PCI (Xience Skypoint 4.0 x 28 LUCILLE, postdilated with a 5.0 NC balloon)
with reduction in stenosis to 0%, complicated by slow reflow/no reflow and DUTCH I flow.
2. Status post successful delivery of vasodilators to the distal RCA, restoring DUTCH-3 flow.
3. Normal filling pressures (LVEDP = 10 mmHg at 90.7 kg).
RECOMMENDATIONS:
1. Expectant management after cardiac catheterization via right radial approach.
2. Limited weight bearing on the right for one week.
3. Dual antiplatelet therapy with aspirin and ticagrelor for at least 12 months, followed by aspirin indefinitely.
4. Maintain heparin drip for 6 hours and eptifibatide drip for 18 hours.
5. Aggressive secondary prevention with high-dose, high potency statin. Goal LDL <55.
6. OMT/GDMT as hemodynamics will tolerate.
7. Echocardiogram ordered and pending.
8. Referral to cardiac rehab.
Copy to: Jon Cardoso D.O.
Jon Cardoso, , FACC, FACP
--- NOTE | 2025-06-28 12:18 | PTCARENOTE ---
Rec'd pt from construction laborer. R radial hemostasis band intact. No bleeding/hematoma noted. Activity restrictions reviewed w/ pt and verbalizes understanding. Heparin gtt and Integrilin gtt infusing at 15 ml/hr. Post cath fluids infusing per order. See
DEC. Pt reports 10/21 chest discomfort and Marysol Manzano POST ANESTHESIA NURSE aware. No new orders placed. Ekg obtained. Tele- SR w/ BBBC. HR 50-60s. Assessment completed as documented. Oriented pt to room. Currently in bed; call delaney w/in reach.
--- NOTE | 2025-06-28 13:16 | CM ---
Pricing on Brilinta through the patient's [facility] is $30 for a 30 day supply. It is not in stock at the patient's [facility], but if ordered today it will be available tomorrow. I notified Sheba Manzano. MICHELET to call to confirm on discharge. Patient is
agreeable to cost
--- NOTE | 2025-06-28 13:41 | CM ---
Chart reviewed. Patient is independent of ADLS, lives with his in a 2 STH, 2 ABBEY, 0 DME. Plan is for the patient to return home. CM to follow
[2025-06-28 15:27] LABS: ACT-LR - POC > 397 Seconds (116-155)
[2025-06-28] MEDS: INTEGRILIN 100 IV ×2 (15:34→22:10)
[2025-06-28 16:42] LABS: Troponin I 0.551 ng/ml
[2025-06-28] MEDS: LIPITOR 40 MG PO (18:03)
[2025-06-28] MEDS: BRILINTA 90 MG PO (19:39)
--- NOTE | 2025-06-28 20:39 | PTCARENOTE ---
Received patient at change of shift. SR on the monitor, HR in the 60s. Integrilin running as per order, see documentation. No chest pain at this time. R radial dressing CDI, no evidence of hematoma. No complaints from pt at this time, call baltazar
within reach.
[2025-06-28] MEDS: XALATAN OPHTHALMIC SOLUTION 1 DROP BOTH EYES (22:07)
[2025-06-29] VITALS (7 sets, daily range): BP systolic 126–147; BP diastolic 75–92
[2025-06-29 00:50] LABS: Troponin I 8.940 ng/ml
[2025-06-29 03:42] LABS: Hematocrit 38.0 % (39.0-52.0); Hemoglobin 13.7 g/dL (13.0-18.0); Mean Corp Hgb Conc. 36.1 g/dL (33.0-37.0); Mean Corpuscular Volume 79.2 fL (80.0-94.0); Platelet Count 164 10^3/uL (130-400); Red Cell Dist. Width 12.4 % (11.5-14.5)
[2025-06-29 04:08] LABS: Blood Urea Nitrogen 14 mg/dl (9-20); Calcium 9.2 mg/dl (8.4-10.2); Carbon Dioxide 23 mmol/L (22-30); Chloride 101 mmol/L (98-107); Estimated Creatinine Clearance 84 ml/min; Glucose 113 mg/dl (70-99); HDL Cholesterol 39 mg/dl; LDL Cholesterol, Calculated 75 mg/dl; Potassium 4.1 mmol/L (3.5-5.1); Sodium 129 mmol/L (135-145); Very Low Density Lipoprotein 23 mg/dl (0-30); eGFR > 60.00
--- NOTE | 2025-06-29 04:14 | PTCARENOTE ---
When obtaining EKG on patient, noticed ecchymosis on L chest under nipple. Soft, non tender. BP 145/82. Hgb 13.7. CT surgery PA made aware. Ecchymotic area marked.
--- NOTE | 2025-06-29 08:26 | W.PN.CD ---
Today's Communication / Plan
-
Echocardiogram ordered/pending.
Trend troponins to peak.
Check serum TSH, serum/urine osms, urine Na.
Impression / Plan
-
Impression/Plan: 75 y/o male with HTN, HLD admitted with inferior STEMI.
#Inferior STEMI/CAD
-Acute, threat to life.
-S/P PCI to the hazy, thrombotic 95% proximal RCA lesion (Xience Skypoint 4.0 x 28 LUCILLE, post dilated with a 5.0 NC balloon) with reduction of stenosis to 0%, complicated by slow reflow (DUTCH I-II flow).
-Slow reflow treated with vasodilators to the distal RCA with a Twin-Pass catheter (nitroglycerin/adenosine) and eptifabitide double bolus and gtt. DUTCH III flow restored.
-Troponin 0.551 --> 8.940 --> pending.
-DAPT with aspirin and ticagrelor for at least 12 months, followed by aspirin 81 mg PO daily indefinitely.
-Echocardiogram ordered and pending.
-Aggressive secondary prevention. D/C simvastatin and start atorvastatin 40 mg daily.
-Referral to cardiac rehab.
#HTN
-Chronic, stable.
-Continue telmisartan and amlodipine.
#HLD
-Chronic, stable.
-Total cholesterol = 137, LDL = 75, HDL = 39, Triglycerides = 116.
-Continue atorvastatin [address] of simvastatin[address]
-Goal LDL < 55.
#Hyponatremia
-New diagnosis.
-Check serum/urine osmolality, urine Na, TSH.
Subjective/Interval History:
PCI to pRCA yesterday, complicated by slow reflow treated with eptifabitide/intracoronary vasodilators.
Chest pain resolved.
Mildly hypertensive.
Labs show hyponatremia.
DATA:
Cardiac Catheterization/PCI, 06/28/2025:
CONCLUSIONS
1. Right dominant circulation with a 20-30% lesion in the proximal LAD and a hazy, thrombotic 95% culprit lesion in the proximal RCA with DUTCH II flow, status post successful PCI (Xience Skypoint 4.0 x 28 LUCILLE, postdilated with a 5.0 NC balloon)
with reduction in stenosis to 0%, complicated by slow reflow/no reflow and DUTCH I flow.
2. Status post successful delivery of vasodilators to the distal RCA, restoring DUTCH-3 flow.
3. Normal filling pressures (LVEDP = 10 mmHg at 90.7 kg).
Physical Exam
Vital Signs/Labs
Vital Signs
Temp Pulse Resp BP Pulse Ox
36.9 C 56 20 147/82 94
06/29/25 07:40 06/29/25 07:45 06/29/25 07:40 06/29/25 07:40 06/29/25 07:40
06/27/25 06/28/25 06/29/25
11:59 11:59 11:59
Actual Weight 90.265 kg
06/29/25 03:29
06/29/25 03:29
PT 15.2 Sec (11.4-14.6) H 06/28/25 09:48
INR 1.14 06/28/25 09:48
Triglycerides 116 mg/dl (10-149) 06/29/25 03:29
LDL Cholesterol, Calc 75 mg/dl 06/29/25 03:29
VLDL Cholesterol, Calc 23 mg/dl (0-30) 06/29/25 03:29
HDL Cholesterol 39 mg/dl 06/29/25 03:29
LAB Results
06/28/25 06/28/25 06/29/25
09:48 15:58 00:15
Troponin I < 0.012 0.551 H* D 8.940 H*
Physical Exam
Constitutional: No acute distress and Comfortable
EENT: Anicteric and Moist mucous membranes
Cardiovascular: Rhythm & rate is regular, Pedal edema is absent, JVD pressure is normal, S1S2 is normal and Murmur/rub/gallop absent
Respiratory: Respiratory effort normal, Lungs clear to auscul., Wheeze Absent, Crackles Absent and Rhonchi Absent
GI: Soft, Distention absent, Flat, Non tender and Normal bowel sounds
Neuro/Psych: AO x 3
Other: Cath Site (Right radial access site is C/D/I.)
Data Reviewed
-
Date of Service: June 29, 2025
Medical Decision Making: Reviewed Test Results, Independent Historian Assessment and Test Interpretation
EKG: Tracing Personally Visualized and interpreted and Report Reviewed by me
Echo: Ordered by me
X-Ray/CT/US/MRI/NUC/PET: Image Personally Visualized and interpreted and Report Reviewed by me
Medical Tests (PFT, Pathology etc): Image Personally Visualized and interpreted and Report Reviewed by me
Labs: Labs Reviewed by me
Old Records: Reviewed
[2025-06-29] MEDS: NORVASC 5 MG PO (09:24)
[2025-06-29] MEDS: PROTONIX 40 MG PO (09:24)
[2025-06-29] MEDS: BRILINTA 90 MG PO ×2 (09:24→20:15)
[2025-06-29] MEDS: LOW STRENGTH ASPIRIN 81 MG PO (09:25)
[2025-06-29] MEDS: COZAAR 100 MG PO (09:25)
[2025-06-29 09:34] LABS: Troponin I 8.760 ng/ml
[2025-06-29 12:41] LABS: TSH 0.69 uIU/ml (0.47-4.68)
[2025-06-29 13:29] LABS: Glycohemoglobin (HgbA1c) 5.6 % (4.0-5.6)
[2025-06-29 14:47] LABS: Urine Character Clear (Clear)
[2025-06-29 15:14] LABS: Urine Red Blood Cell 0-2 /HPF (0-2); Urine Squamous Cell 0-2 /LPF (Few)
[2025-06-29] MEDS: LOVENOX 40 MG SC (18:16)
[2025-06-29] MEDS: LIPITOR 40 MG PO (18:16)
--- NOTE | 2025-06-29 19:24 | PTCARENOTE ---
Pt denied any discomfort. Echo done at bedside. Pt walked around entire unit without problem. Troponin level peaked around 8. Telemetry shows sinus maria del carmen with one triplet. Radial site intact.
[2025-06-29] MEDS: XALATAN OPHTHALMIC SOLUTION 1 DROP BOTH EYES (20:15)
[2025-06-30 03:25] VITALS: BP 136/85
[2025-06-30 04:18] LABS: Hematocrit 41.8 % (39.0-52.0); Hemoglobin 14.7 g/dL (13.0-18.0); Mean Corp Hgb Conc. 35.2 g/dL (33.0-37.0); Mean Corpuscular Volume 81.2 fL (80.0-94.0); Platelet Count 154 10^3/uL (130-400); Red Cell Dist. Width 12.4 % (11.5-14.5)
[2025-06-30 04:58] LABS: Blood Urea Nitrogen 12 mg/dl (9-20); Calcium 9.4 mg/dl (8.4-10.2); Carbon Dioxide 25 mmol/L (22-30); Chloride 106 mmol/L (98-107); Estimated Creatinine Clearance 84 ml/min; Glucose 101 mg/dl (70-99); Potassium 4.4 mmol/L (3.5-5.1); Sodium 135 mmol/L (135-145); eGFR > 60.00
--- NOTE | 2025-06-30 06:11 | PTCARENOTE ---
Ot NSR on monitor, VSS. Pt denies pain or any discomfort. Pt independent in the room. Call baltazar within reach
[2025-06-30 07:15] VITALS: BP 117/69
[2025-06-30] MEDS: COZAAR 100 MG PO (08:24)
[2025-06-30] MEDS: BRILINTA 90 MG PO (08:24)
[2025-06-30] MEDS: PROTONIX 40 MG PO (08:24)
[2025-06-30] MEDS: NORVASC PO (08:24)
[2025-06-30] MEDS: LOW STRENGTH ASPIRIN 81 MG PO (08:24)
--- NOTE | 2025-06-30 08:39 | W.PN.CD ---
Today's Communication / Plan
-
Beta addy on hold due to relative bradycardia.
Discharge.
Impression / Plan
-
Impression/Plan: 75 y/o male with HTN, HLD admitted with inferior STEMI.
#Inferior STEMI/CAD
-Acute, threat to life.
-S/P PCI to the hazy, thrombotic 95% proximal RCA lesion (Xience Skypoint 4.0 x 28 LUCILLE, post dilated with a 5.0 NC balloon) with reduction of stenosis to 0%, complicated by slow reflow (DUTCH I-II flow).
-Slow reflow treated with vasodilators to the distal RCA with a Twin-Pass catheter (nitroglycerin/adenosine) and eptifabitide double bolus and gtt. DUTCH III flow restored.
-Troponin 0.551 --> 8.940 --> 8.760.
-DAPT with aspirin and ticagrelor for at least 12 months, followed by aspirin 81 mg PO daily indefinitely.
-Echocardiogram shows preserved systolic function with basal inferior hypokinesis, LVEF 60-65%.
-Continue atorvastatin 40 mg daily.
-Referral to cardiac rehab.
-Beta addy on hold due to relative bradycardia.
#HTN
-Chronic, stable.
-Continue telmisartan and amlodipine.
#HLD
-Chronic, stable.
-Total cholesterol = 137, LDL = 75, HDL = 39, Triglycerides = 116.
-Continue atorvastatin [address] of simvastatin.
-Goal LDL < 55.
#Hyponatremia
-Resolved.
#Disposition
-Discharge.
Subjective/Interval History:
Hyponatremia has corrected.
Feels well.
Echo shows basal inferior hypokinesis but preserved systolic function, LVEF 60-65%.
DATA:
Cardiac Catheterization/PCI, 06/28/2025:
CONCLUSIONS
1. Right dominant circulation with a 20-30% lesion in the proximal LAD and a hazy, thrombotic 95% culprit lesion in the proximal RCA with DUTCH II flow, status post successful PCI (Xience Skypoint 4.0 x 28 LUCILLE, postdilated with a 5.0 NC balloon)
with reduction in stenosis to 0%, complicated by slow reflow/no reflow and DUTCH I flow.
2. Status post successful delivery of vasodilators to the distal RCA, restoring DUTCH-3 flow.
3. Normal filling pressures (LVEDP = 10 mmHg at 90.7 kg).
TTE, 06/29/2025:
SUMMARY
1. Left ventricular cavity size is 4.60 cm which is normal.
2. LV Wall Motion: basal inferior segment is abnormal, as described below.
3. Ejection fraction is 60-65% by Morgan's method of discs.
4. Right ventricular size and systolic function are within normal limits.
5. Aortic valve opens normally. Calcified aortic valve with focal calcification on the non-coronary cusp extending into the left ventricular outflow tract.
6. Aortic annulus, aortic sinuses and ascending aorta are mildly dilated.
7. There are no prior studies available for comparison.
Physical Exam
Vital Signs/Labs
Vital Signs
Temp Pulse Resp BP Pulse Ox
36.9 C 62 15 117/69 95
06/30/25 07:15 06/30/25 08:00 06/30/25 07:15 06/30/25 07:15 06/30/25 08:26
06/28/25 06/29/25 06/30/25
11:59 11:59 11:59
Actual Weight 90.265 kg
06/30/25 03:32
06/30/25 03:32
PT 15.2 Sec (11.4-14.6) H 06/28/25 09:48
INR 1.14 06/28/25 09:48
Triglycerides 116 mg/dl (10-149) 06/29/25 03:29
LDL Cholesterol, Calc 75 mg/dl 06/29/25 03:29
VLDL Cholesterol, Calc 23 mg/dl (0-30) 06/29/25 03:29
HDL Cholesterol 39 mg/dl 06/29/25 03:29
TSH 0.69 uIU/ml (0.47-4.68) 06/29/25 03:29
LAB Results
06/28/25 06/28/25 06/29/25
09:48 15:58 00:15
Troponin I < 0.012 0.551 H* D 8.940 H*
06/29/25
08:47
Troponin I 8.760 H*
Physical Exam
Constitutional: No acute distress and Comfortable
EENT: Anicteric and Moist mucous membranes
Cardiovascular: Rhythm & rate is regular, Pedal edema is absent, JVD pressure is normal, S1S2 is normal and Murmur/rub/gallop absent
Respiratory: Respiratory effort normal, Lungs clear to auscul., Wheeze Absent, Crackles Absent and Rhonchi Absent
GI: Soft, Distention absent, Flat, Non tender and Normal bowel sounds
Neuro/Psych: AO x 3
Other: Cath Site (Right radial access site is C/D/I.)
Data Reviewed
-
Date of Service: June 30, 2025
Medical Decision Making: Reviewed Test Results, Independent Historian Assessment and Test Interpretation
EKG: Tracing Personally Visualized and interpreted and Report Reviewed by me
Echo: Tracing Personally Visualized and interpreted and Report Reviewed by me
X-Ray/CT/US/MRI/NUC/PET: Image Personally Visualized and interpreted and Report Reviewed by me
Medical Tests (PFT, Pathology etc): Image Personally Visualized and interpreted, Report Reviewed by me, Discussed with Patient and Discussed with Family
Labs: Labs Reviewed by me
Old Records: Reviewed
--- NOTE | 2025-06-30 09:56 | W.DS.TRANS ---
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
-
Discharge Instructions:
Discharge Diagnosis/Procedures STEMI, Angioplasty with stent to Right Coronary
artery
Diet Low Cholesterol
Driving Restrictions No driving for 24 hours
Other Services Cardiac Rehab
Instructions:
Stand-Alone Forms: DC Instructions- Cath/EP Lab
Changes to Home Medications: Yes
Discharge Medications:
DC Medications w/original date entered in [employer]
cholecalciferol (vitamin D3) 25 mcg (1,000 unit) tablet 25 mcg PO QPM Supplement 07/05/24
famotidine 20 mg tablet 20 mg PO BID Gastrointestinal Issue 07/05/24
latanoprost 0.005 % eye drops 1 drp BOTH EYES HS Eye Condition 07/05/24
omega 3-xmg-ljr-fish oil 1,200 mg (144 mg-216 mg) capsule (Fish Oil) 3 cap PO DAILY Supplement 07/05/24
therapeutic multivitamin 1 tab PO DAILY Supplement 07/05/24
amlodipine 5 mg tablet 5 mg PO DAILY hypertension 06/28/25
pantoprazole 40 mg tablet,delayed release 40 mg PO DAILY gerd 06/28/25
telmisartan 80 mg tablet 80 mg PO DAILY hypertension 06/28/25
ticagrelor 90 mg tablet (Brilinta) 90 mg PO BID #60 tabs 06/28/25
aspirin 81 mg chewable tablet 81 mg PO DAILY #0 tabs 06/30/25
atorvastatin 40 mg tablet 40 mg PO QPM #30 tabs 06/30/25
Home Medication Changes
NEW: ticagrelor, aspirin, atorvastatin
STOP: simvastatin
Pending Results: No
[2025-06-30 10:39] VITALS: BP 127/85
--- NOTE | 2025-06-30 13:12 | PTCARENOTE ---
Pt seen by . Pt walking in halls, denies any discomfort. Telemetry and IV device removed. Discharge instructions reviewed with pt and his regarding medications and their possible side effects, wound care, activity guidelines, reporting
cares and concerns and follow up appt's. Excellent understanding verbalized. Pt escorted out via wheelchair and discharged to home.
== END 2025-06-30 12:30 | disposition home or self-care (01) | DRG 322 ==
LOC: IVU 11:22
PROVIDERS: Nurse Practitioner Adult Health; ADMITTING PHYSICIAN Internal Medicine Cardiovascular Disease; EMERGENCY PHYSICIAN Emergency Medicine
PROC: 027034Z Dilation of Coronary Artery, One Artery with Drug-eluting Intraluminal Device, Percutaneous Approach (ICD-10-PCS; 2025-06-28)
PROC: 4A023N7 Measurement of Cardiac Sampling and Pressure, Left Heart, Percutaneous Approach (ICD-10-PCS; 2025-06-28)
PROC: B2111ZZ Fluoroscopy of Multiple Coronary Arteries using Low Osmolar Contrast (ICD-10-PCS; 2025-06-28)
DX: I21.19 ST elevation (STEMI) myocardial infarction involving other coronary artery of inferior wall (principal); K21.9 Gastro-esophageal reflux disease without esophagitis; I10 Essential (primary) hypertension; E78.00 Pure hypercholesterolemia, unspecified; Z86.16 Personal history of COVID-19; Z82.49 Family history of ischemic heart disease and other diseases of the circulatory system; Z82.0 Family history of epilepsy and other diseases of the nervous system; Z82.3 Family history of stroke; Z79.899 Other long term (current) drug therapy; I95.1 Orthostatic hypotension
CPT/HCPCS: 80048; 80053; 80061; 81003; 81015; 83036; 83930; 83935; 84300; 84443; 84484; 85025; 85027; 85347; 85610; 93005; 93306; 93458; 99152; 99153; 99285; C1725; C1769; C1874; C1894; C9606; J0153; J1327

== ENCOUNTER 2025-08-11 16:06 | Outpatient (RCR) | payer OTHER, SELFPAY | END 2025-08-11 23:59 | disposition home or self-care (01) | LOC: CRHB 16:06 | PROVIDERS: ATTENDING PHYSICIAN Internal Medicine Cardiovascular Disease; FAMILY PHYSICIAN Family Medicine | DX: I25.2 Old myocardial infarction (principal); I21.01 ST elevation (STEMI) myocardial infarction involving left main coronary artery (principal); I25.10 Atherosclerotic heart disease of native coronary artery without angina pectoris; Z95.5 Presence of coronary angioplasty implant and graft | CPT/HCPCS: G0422; G0423 ==

== ENCOUNTER 2025-09-08 13:21 | Outpatient (RCR) | payer OTHER, SELFPAY | END 2025-09-08 23:59 | disposition home or self-care (01) | LOC: CRHB 13:21 | PROVIDERS: ATTENDING PHYSICIAN Internal Medicine Cardiovascular Disease; FAMILY PHYSICIAN Family Medicine | DX: I21.01 ST elevation (STEMI) myocardial infarction involving left main coronary artery (principal); I25.2 Old myocardial infarction (principal); I25.10 Atherosclerotic heart disease of native coronary artery without angina pectoris; Z95.5 Presence of coronary angioplasty implant and graft | CPT/HCPCS: G0422; G0423 ==

== ENCOUNTER 2025-10-10 13:00 | Outpatient (RCR) | payer OTHER, SELFPAY | END 2025-10-10 23:59 | disposition home or self-care (01) | LOC: CRHB 13:00 | PROVIDERS: ATTENDING PHYSICIAN Internal Medicine Cardiovascular Disease; FAMILY PHYSICIAN Family Medicine | DX: I25.10 Atherosclerotic heart disease of native coronary artery without angina pectoris (principal); I25.2 Old myocardial infarction; Z95.5 Presence of coronary angioplasty implant and graft; I21.01 ST elevation (STEMI) myocardial infarction involving left main coronary artery; I10 Essential (primary) hypertension; E78.5 Hyperlipidemia, unspecified | CPT/HCPCS: G0422; G0423 ==